=== PATIENT | female | born 1965 | race Caucasian/White ===

== ENCOUNTER 2017-11-18 10:47 | Outpatient (CLI) | payer OTHER ==
--- NOTE | 2017-12-09 14:15 | MMO ---
BILATERAL SCREENING MAMMOGRAM: Date: 11/18/17 INDICATION: Annual exam. COMPARISON: None available. Previous performed at [facility] were unavailable for review. This will be the patient's baseline examination at [facility]. FINDINGS: Interpretation of this exam was assisted with computer-aided detection. Scattered fibroglandular elements bilaterally. There are benign-appearing calcifications within the right and left breast. No suspicious mass, cluster of microcalcifications, or area of architectural distortion is evident. IMPRESSION: BIRADS 2: Benign Finding(s) Recommend routine annual mammographic screening. POS: [id number]
== END 2017-11-18 10:48 | disposition home or self-care (01) ==
LOC: SCSMAMMO 10:47
PROVIDERS: ATTEND Internal Medicine
DX: Z12.31 Encounter for screening mammogram for malignant neoplasm of breast (principal); Z12.11 Encounter for screening for malignant neoplasm of colon
CPT/HCPCS: 77067